=== PATIENT | male | born 2005 | race Two or more races ===

== ENCOUNTER 2025-02-12 18:52 | Emergency (ER) | payer OTHER ==
[~2025-02-12] VITALS: Ht 175.3 cm; Wt 137.9 kg
[2025-02-12] MEDS ORDERED: LACTOBACILLUS ACIDOPHILUS 1 CAP CAP PO STA (19:58)
[2025-02-12] MEDS ORDERED: FAMOTIDINE/PF 20 MG/2 ML VIAL IV PUSH STA (19:59)
[2025-02-12] MEDS ORDERED: RINGERS SOLUTION,LACTATED 1,000 ML IV STA (19:59)
[2025-02-12] MEDS ORDERED: ONDANSETRON HCL 2 MG/ML VIAL IV STA (19:59)
[2025-02-12] MEDS ORDERED: ACETAMINOPHEN 325 MG TABLET PO STA (20:01)
[2025-02-12 22:53] LABS: BASO % 0.2 % (0.1-1.2); EOS # 0.06 (0.04-0.54); EOS % 0.4 % (0.7-7.0); LYMPH # 1.43 (1.18-3.74); LYMPH % 10.6 % (19.3-53.1); MEAN PLATELET VOLUME 9.20 fl (9.4-12.4); MONO # 1.10 (0.24-0.82); MONO % 8.1 % (4.7-12.5); NEUT # 10.81 (1.56-6.13); NEUT % 80.1 % (34.0-71.1); RED CELL DISTRIBUTION WIDTH 12.8 % (11.6-14.4)
[2025-02-12 23:15] LABS: ALT/SGPT 40.0 U/L (12-78); AST/SGOT 16.0 U/L (15-37); BILIRUBIN TOTAL 0.84 mg/dL (0.3-1.2); BUN CREA RATIO 15.0 (7.0-25.0); CREATININE SERUM 1.14 mg/dL (0.70-1.30); GFR 80.32; GLOBULINA 3.5 G/DL (2.4-3.5); GLUCOSE FASTING 93.0 mg/dL (65-100); OSMOLALITY SERUM 277.0 MOSM/KG (275-295)
[2025-02-12 23:40] LABS: COVID-19 AG NEGATIVE (NEGATIVE)
[2025-02-13] MEDS ORDERED: CEFTRIAXONE SODIUM 1,000 MG VIAL IM ONE (00:15)
[2025-02-13] MEDS ORDERED: PROBIOTIC1 EAC2 PO (00:19)
[2025-02-13] MEDS ORDERED: ZOFRAN8 MG PO (00:19)
[2025-02-13] MEDS ORDERED: PEPCID AC20 MG PO (00:19)
== END 2025-02-13 00:26 | disposition home or self-care (01) ==
LOC: ER 18:52
PROVIDERS: General Practice
DX: K52.89 Other specified noninfective gastroenteritis and colitis (principal); Z20.822 Contact with and (suspected) exposure to COVID-19